=== PATIENT | female | born 1935 | race Caucasian/White ===

== ENCOUNTER 2022-06-23 12:41 | Inpatient (IN) ==
[2022-06-23 17:09] LABS: Urine Appearance Clear (Clear); Urine Color Yellow (Yellow); Urine pH 5.5 (4.5-8.0)
[2022-06-23 17:10] LABS: Bilirubin,Urine Negative (Negative); Blood, Urine Large mg/dL (Negative); Glucose,Urine (UA) Negative (Negative); Ketones,Urine Negative (Negative); Nitrite,Urine Negative (Negative); Protein,Urine Negative (Negative); Urine Urobilinogen 0.2 eU/dL (<2.0)
[2022-06-23 17:11] LABS: Bacteria,Urine Occasional /HPF (Few); Mucus,Urine Occasional /LPF (Occasional); RBC,Urine 8 /HPF (0-4); Squamous Epithelial Cell,Urine Occasional /HPF (0-10)
[2022-06-23 18:35] LABS: Basophils % 0.1 % (0.0-0.8); Eosinophils # 0.1 10*3/uL (0.0-0.87); Eosinophils % 0.7 % (0.00-10.9); Hematocrit 39.5 VOL% (35.7-47.0); Hemoglobin 12.9 GM/DL (12.0-16.0); Immature Granulocytes % 1.6 %; Immature Granulocytes Absolute 0.24 #; Lymphocytes # 1.8 10*3/uL (1.4-4.0); Lymphocytes % 11.6 % (21.3-54.2); Mean Corpuscular HGB Conc 32.7 GM/DL (32-36); Mean Corpuscular Volume 92.3 FL (87-102); Mean Platelet Volume 9.1 FL (9.6-12.0); Monocytes # 1.3 10*3/uL (0.11-0.8); Monocytes % 8.4 % (1.7-12.7); Neutrophils % 77.6 % (38.7-73.9); Platelet Count 344 T/CUMM (130-400); Red Blood Count 4.28 MC/CUMM (3.8-5.5); Red Cell Distribution Width 14.6 % (9.3-17.3); White Blood Count 15.27 T/CUMM (4-12)
[2022-06-23 18:53] LABS: Albumin 3.9 G/DL (3.4-5.0); Bilirubin,Total 1.1 MG/DL (0.20-1.00); Osmolality,Calculated 274.5 MOS/KG (273-304); Total Protein 7.2 G/DL (6.4-8.2)
[2022-06-23] MEDS ORDERED: MEROPENEM 1,000 MG in SODIUM CHLORIDE 0.9% 100 ML IV STA ×2 (18:57→19:04)
[2022-06-23] MEDS ORDERED: DEXTROSE 50% 25 GM/50 ML VIAL IV STA (22:08)
[2022-06-23] MEDS ORDERED: INSULIN REGULAR 100 UNIT/ML IV STA (22:08)
[2022-06-23] MEDS ORDERED: DEXTROSE 50% 25 GM/50 ML SYRINGE IV STA (22:12)
[2022-06-23] MEDS: SODIUM CHLORIDE 0.9% 1,000 ML IV SCH (22:38)
[2022-06-23] MEDS ORDERED: ACETAMINOPHEN 325 MG TABLET PO PRN (23:39)
[2022-06-23] MEDS ORDERED: SIMETHICONE CHEW 125 MG TABLET PO PRN (23:39)
[2022-06-23] MEDS ORDERED: SODIUM POLYSTYRENE SULFATE 15 GM/60 ML BOTTLE PO STA (23:39)
[2022-06-23] MEDS ORDERED: ONDANSETRON 4 MG/2 ML VIAL IV PRN (23:39)
[2022-06-24] MEDS ORDERED: NITROFURANTOIN MACRO/MONO 100 MG CAPSULE PO SCH (01:00)
[2022-06-24 04:16] LABS: Basophils % 0.1 % (0.0-0.8); Eosinophils # 0.1 10*3/uL (0.0-0.87); Eosinophils % 0.8 % (0.00-10.9); Hematocrit 38.3 VOL% (35.7-47.0); Hemoglobin 12.4 GM/DL (12.0-16.0); Immature Granulocytes % 1.6 %; Immature Granulocytes Absolute 0.23 #; Lymphocytes # 1.6 10*3/uL (1.4-4.0); Lymphocytes % 11.1 % (21.3-54.2); Mean Corpuscular HGB Conc 32.4 GM/DL (32-36); Mean Corpuscular Volume 94.1 FL (87-102); Mean Platelet Volume 8.9 FL (9.6-12.0); Monocytes # 1.2 10*3/uL (0.11-0.8); Monocytes % 8.2 % (1.7-12.7); Neutrophils % 78.2 % (38.7-73.9); Platelet Count 304 T/CUMM (130-400); Red Blood Count 4.07 MC/CUMM (3.8-5.5); Red Cell Distribution Width 14.6 % (9.3-17.3); White Blood Count 14.13 T/CUMM (4-12)
[2022-06-24] MEDS: SODIUM CHLORIDE 0.9% 1,000 ML IV SCH ×4 (04:17→22:57)
[2022-06-24 04:47] LABS: Osmolality,Calculated 281.8 MOS/KG (273-304); Thyroid Stimulating Hormone 2.6 uIU/ml (0.358-3.74)
[2022-06-24 04:49] LABS: Potassium 6.5 MMOL/L (3.5-5.1)
[2022-06-24] MEDS ORDERED: INSULIN REGULAR 10 UNIT, CALCIUM GLUCONATE 1,000 MG in DEXTROSE 10% 250 ML IV ONE (06:09)
[2022-06-24] MEDS ORDERED: SODIUM POLYSTYRENE SULFATE 15 GM/60 ML BOTTLE PO ONE (06:10)
[2022-06-24] MEDS ORDERED: lisinopriL 5 MG TABLET PO SCH (09:00)
[2022-06-24] MEDS ORDERED: NON-FORMULARY MEDICATION (Esomeprazole Magnesium 20 mg capsule,delayed release(DR/EC)) PO SCH (09:00)
[2022-06-24] MEDS: PROPRANOLOL 20 MG TABLET PO SCH (09:30)
[2022-06-24] MEDS: APIXABAN 2.5 MG TABLET PO SCH ×2 (09:30→22:55)
[2022-06-24] MEDS: gemfibroziL 600 MG TABLET PO SCH (09:30)
[2022-06-24] MEDS: MONTELUKAST 10 MG TABLET PO SCH (09:30)
[2022-06-24] MEDS: PANTOPRAZOLE 40 MG TABLET PO SCH (09:30)
[2022-06-24] MEDS: DOCUSATE SODIUM 100 MG CAPSULE PO SCH ×2 (09:30→22:57)
[2022-06-24] MEDS: DILTIAZEM CD 120 MG CAPSULE PO SCH (09:30)
[2022-06-24] MEDS: CHOLECALCIFEROL 1,000 UNIT TABLET PO SCH (09:30)
[2022-06-24] MEDS: MELOXICAM 7.5 MG TABLET PO SCH (09:30)
[2022-06-24] MEDS ORDERED: SODIUM POLYSTYRENE SULFATE 15 GM/60 ML BOTTLE PO STA (12:52)
[2022-06-24] MEDS: MEROPENEM 500 MG in SODIUM CHLORIDE 0.9% 100 ML IV SCH ×2 (14:40→22:53)
[2022-06-24] MEDS ORDERED: SODIUM ZIRCONIUM CYCLOSILICATE 10 GM PACK PO SCH (21:00)
[2022-06-25 04:34] LABS: Basophils % 0.1 % (0.0-0.8); Eosinophils # 0.1 10*3/uL (0.0-0.87); Eosinophils % 1.2 % (0.00-10.9); Hematocrit 35.3 VOL% (35.7-47.0); Hemoglobin 11.3 GM/DL (12.0-16.0); Immature Granulocytes % 1.1 %; Immature Granulocytes Absolute 0.13 #; Lymphocytes # 1.4 10*3/uL (1.4-4.0); Lymphocytes % 11.6 % (21.3-54.2); Mean Corpuscular Volume 95.1 FL (87-102); Monocytes # 0.9 10*3/uL (0.11-0.8); Monocytes % 7.5 % (1.7-12.7); Neutrophils % 78.5 % (38.7-73.9); Platelet Count 267 T/CUMM (130-400); Red Blood Count 3.71 MC/CUMM (3.8-5.5); Red Cell Distribution Width 14.5 % (9.3-17.3); White Blood Count 12.01 T/CUMM (4-12)
[2022-06-25 05:17] LABS: Calcium 8.6 MG/DL (8.5-10.1); Potassium 4.8 MMOL/L (3.5-5.1)
[2022-06-25] MEDS: MEROPENEM 500 MG in SODIUM CHLORIDE 0.9% 100 ML IV SCH ×3 (05:21→22:02)
[2022-06-25] MEDS ORDERED: NON-FORMULARY MEDICATION (Alendronate 35 mg Tablet) PO SCH (09:00)
[2022-06-25] MEDS: PROPRANOLOL 20 MG TABLET PO SCH (09:35)
[2022-06-25] MEDS: APIXABAN 2.5 MG TABLET PO SCH ×2 (09:36→22:02)
[2022-06-25] MEDS: CHOLECALCIFEROL 1,000 UNIT TABLET PO SCH (09:36)
[2022-06-25] MEDS: MELOXICAM 7.5 MG TABLET PO SCH (09:36)
[2022-06-25] MEDS: DILTIAZEM CD 120 MG CAPSULE PO SCH (09:37)
[2022-06-25] MEDS: MONTELUKAST 10 MG TABLET PO SCH (09:38)
[2022-06-25] MEDS: DOCUSATE SODIUM 100 MG CAPSULE PO SCH ×2 (09:38→22:02)
[2022-06-25] MEDS: PANTOPRAZOLE 40 MG TABLET PO SCH (09:38)
[2022-06-25] MEDS: gemfibroziL 600 MG TABLET PO SCH (09:41)
[2022-06-25] MEDS ORDERED: TUBERCULIN SKIN TEST 0.1 ML SYRINGE INTRADERM ONE (14:44)
[2022-06-25] MEDS: SODIUM CHLORIDE 0.9% 1,000 ML IV SCH ×2 (17:36→17:37)
[2022-06-26] MEDS: SODIUM CHLORIDE 0.9% 1,000 ML IV SCH ×3 (04:51→21:37)
[2022-06-26] MEDS: MEROPENEM 500 MG in SODIUM CHLORIDE 0.9% 100 ML IV SCH ×3 (05:00→21:33)
[2022-06-26 05:22] LABS: Basophils % 0.1 % (0.0-0.8); Eosinophils # 0.2 10*3/uL (0.0-0.87); Eosinophils % 2.3 % (0.00-10.9); Hematocrit 33.3 VOL% (35.7-47.0); Hemoglobin 10.7 GM/DL (12.0-16.0); Lymphocytes # 1.3 10*3/uL (1.4-4.0); Lymphocytes % 12.1 % (21.3-54.2); Mean Corpuscular HGB Conc 32.1 GM/DL (32-36); Mean Corpuscular Volume 94.1 FL (87-102); Mean Platelet Volume 9.1 FL (9.6-12.0); Monocytes # 0.9 10*3/uL (0.11-0.8); Monocytes % 8.4 % (1.7-12.7); Neutrophils % 76.1 % (38.7-73.9); Platelet Count 247 T/CUMM (130-400); Red Blood Count 3.54 MC/CUMM (3.8-5.5); Red Cell Distribution Width 14.2 % (9.3-17.3); White Blood Count 10.29 T/CUMM (4-12)
[2022-06-26 05:48] LABS: % Iron Saturation 24.6 % (18-50); Calcium 8.2 MG/DL (8.5-10.1); Osmolality,Calculated 286.4 MOS/KG (273-304); Potassium 4.3 MMOL/L (3.5-5.1); Risk Ratio 1.9; VLDL Cholesterol 5.4 MG/DL
[2022-06-26 05:49] LABS: 25 Hydroxy Vitamin D Total 32.2 NG/ML (30-100); Folate 13.96 NG/ML (5.38-24.0)
[2022-06-26] MEDS: CHOLECALCIFEROL 1,000 UNIT TABLET PO SCH (09:05)
[2022-06-26] MEDS: MONTELUKAST 10 MG TABLET PO SCH (09:06)
[2022-06-26] MEDS: DILTIAZEM CD 120 MG CAPSULE PO SCH (09:06)
[2022-06-26] MEDS: PROPRANOLOL 20 MG TABLET PO SCH (09:06)
[2022-06-26] MEDS: DOCUSATE SODIUM 100 MG CAPSULE PO SCH ×2 (09:07→21:37)
[2022-06-26] MEDS: PANTOPRAZOLE 40 MG TABLET PO SCH (09:07)
[2022-06-26] MEDS: APIXABAN 2.5 MG TABLET PO SCH ×2 (09:07→21:37)
[2022-06-26] MEDS: MELOXICAM 7.5 MG TABLET PO SCH (09:07)
[2022-06-26] MEDS: gemfibroziL 600 MG TABLET PO SCH (09:07)
[2022-06-26] MEDS: MENTHOL/ZINC OXIDE OINT 71 GM JAR TOP SCH (21:38)
[2022-06-27 05:54] LABS: Basophils % 0.2 % (0.0-0.8); Eosinophils # 0.3 10*3/uL (0.0-0.87); Eosinophils % 2.7 % (0.00-10.9); Hematocrit 31.3 VOL% (35.7-47.0); Hemoglobin 9.8 GM/DL (12.0-16.0); Immature Granulocytes % 0.8 %; Immature Granulocytes Absolute 0.08 #; Lymphocytes # 1.1 10*3/uL (1.4-4.0); Lymphocytes % 11.2 % (21.3-54.2); Mean Corpuscular HGB Conc 31.3 GM/DL (32-36); Mean Corpuscular Volume 96.9 FL (87-102); Mean Platelet Volume 9.1 FL (9.6-12.0); Monocytes # 0.7 10*3/uL (0.11-0.8); Monocytes % 7.7 % (1.7-12.7); Neutrophils % 77.4 % (38.7-73.9); Platelet Count 227 T/CUMM (130-400); Red Blood Count 3.23 MC/CUMM (3.8-5.5); Red Cell Distribution Width 14.3 % (9.3-17.3); White Blood Count 9.55 T/CUMM (4-12)
[2022-06-27 06:09] LABS: Calcium 8.6 MG/DL (8.5-10.1); Potassium 4.3 MMOL/L (3.5-5.1)
[2022-06-27] MEDS: MEROPENEM 500 MG in SODIUM CHLORIDE 0.9% 100 ML IV SCH (06:33)
[2022-06-27] MEDS: CHOLECALCIFEROL 1,000 UNIT TABLET PO SCH (10:33)
[2022-06-27] MEDS: DOCUSATE SODIUM 100 MG CAPSULE PO SCH (10:34)
[2022-06-27] MEDS: APIXABAN 2.5 MG TABLET PO SCH (10:34)
[2022-06-27] MEDS: PROPRANOLOL 20 MG TABLET PO SCH (10:34)
[2022-06-27] MEDS: gemfibroziL 600 MG TABLET PO SCH (10:34)
[2022-06-27] MEDS: MELOXICAM 7.5 MG TABLET PO SCH (10:35)
[2022-06-27] MEDS: DILTIAZEM CD 120 MG CAPSULE PO SCH (10:35)
[2022-06-27] MEDS: MONTELUKAST 10 MG TABLET PO SCH (10:35)
[2022-06-27] MEDS: PANTOPRAZOLE 40 MG TABLET PO SCH (10:35)
[2022-06-27] MEDS: MENTHOL/ZINC OXIDE OINT 71 GM JAR TOP SCH (10:37)
[2022-06-27 11:20] VITALS: BP 108/66
[2022-06-27] MEDS: SODIUM CHLORIDE 0.9% 1,000 ML IV SCH (11:33)
== END 2022-06-27 14:35 | DRG 641 ==
LOC: N.ED 12:41 → N.EDINP 23:39 → N.TELEN 06-24 15:07
PROVIDERS: ADMIT Internal Medicine; ATTEND Internal Medicine